=== PATIENT | female | born 1950 | race Caucasian/White ===

== ENCOUNTER 2019-01-28 15:46 | Inpatient (IN) | payer OTHER ==
[~2019-01-28] VITALS: Ht 162.6 cm; Wt 104.8 kg
[2019-01-28 15:46] VITALS: BP 159/57
[2019-01-28] MEDS ORDERED: ZESTRIL40 MG PO (16:09)
[2019-01-28] MEDS ORDERED: TRICOR145 MG PO (16:09)
[2019-01-28] MEDS ORDERED: LYRICA 75 MG CA75 MG PO (16:09)
[2019-01-28] MEDS ORDERED: XANAX1 MG PO (16:10)
[2019-01-28] MEDS ORDERED: OMEPRAZOLE40 MG PO (16:10)
[2019-01-28] MEDS ORDERED: ANTIVERT25 MG PO (16:10)
[2019-01-28] MEDS ORDERED: LEXAPRO20 MG PO (16:10)
[2019-01-28] MEDS ORDERED: WELLBUTRIN SR150 MG PO (16:11)
[2019-01-28] MEDS ORDERED: FLONASE 0.05%50 MCG NASAL (16:11)
[2019-01-28] MEDS ORDERED: HUMIRA PSO40 MG/0.8 (16:11)
[2019-01-28] MEDS ORDERED: JARDIANCE25 MG PO (16:12)
[2019-01-28] MEDS ORDERED: MYSOLINE50 MG PO (16:12)
[2019-01-28 16:21] LABS: HEMATOCRIT 41.4 % (37.0-47.0); HEMOGLOBIN 13.4 gm/dL (12.0-15.0); MCH 26.1 pg (26.0-34.0); MCHC 32.4 g/dL (28.0-37.0); MCV 80.6 fL (80.0-100.0); PLATELET COUNT 239 thou/uL (150-400); RBC 5.14 mil/uL (4.20-5.00); RDW 18.1 % (10.5-14.5); WBC 15.7 thou/uL (4.0-11.0)
[2019-01-28 16:39] LABS: ABSOLUTE NEUTROPHILS 13.8 thou/uL (1.4-8.2); ANISOCYTOSIS 1+; POLYCHROMASIA OCCASIONAL
[2019-01-28 16:45] LABS: ANION GAP 14 mmol/L (7-16); BUN 19 mg/dL (7-18); CALCIUM 10.6 mg/dL (8.5-10.1); CHLORIDE 99 mmol/L (98-107); CO2 22 mmol/L (21-32); CREATININE 1.1 mg/dL (0.6-1.0); GLUCOSE 198 mg/dL (74-106); POTASSIUM 5.5 mmol/L (3.5-5.1); SODIUM 135 mmol/L (136-145)
[2019-01-28 16:56] LABS: ALBUMIN 4.2 g/dL (3.4-5.0); LIPASE 132 U/L (73-393); SGOT 32 U/L (15-37); SGPT 40 U/L (30-65); TOTAL BILIRUBIN 0.6 mg/dL (<0.1-1.0); TOTAL PROTEIN 8.3 g/dL (6.4-8.2); TROPONIN-I <0.06 ng/mL (<0.06)
[2019-01-28 18:13] LABS: URINE BILIRUBIN NEGATIVE (Negative); URINE BLOOD NEGATIVE (Negative); URINE CLARITY CLEAR; URINE COLOR YELLOW; URINE GLUCOSE-RANDOM* NEGATIVE (Negative); URINE KETONES NEGATIVE (Negative); URINE LEUKOCYTES-REFLEX NEGATIVE (Negative); URINE NITRITE-REFLEX NEGATIVE (Negative); URINE PROTEIN (DIPSTICK) NEGATIVE (Negative); URINE SPECIFIC GRAVITY <= 1.005 (1.005-1.035); URINE UROBILINOGEN 0.2 E.U./dl (0.2-1.0)
[2019-01-28 18:46] VITALS: BP 164/56
--- NOTE | 2019-01-28 19:12 | NUR ---
REPORT FROM DAY SHIFT RNFRITZ. PATIENT AWAITING INPATIENT BED ASSIGNMENT. PER REPORT, PATIENT HAS 20G TO RIGHT AC AREA, BUT CONTINUOUSLY KINKS AND BEEPS. DAY SHIFT HAS REQUESTED IV TEAM COME LOOK FOR NEW LINE AND BLOOD CULUTRES/LACTIC ACID DRAW. PAPER BAG MAKING MACHINIST NOTIFIED THAT IV TEAM COULD MEET PATIENT IN INPATIENT ROOM 357 TO ATTEMPT NEW LINE.
--- NOTE | 2019-01-28 19:15 | NUR ---
FIRST ATTEMPT AT REPORT - SOPHIA UNAVAILABLE
--- NOTE | 2019-01-28 19:33 | NUR ---
THIS RN ATTEMPTED ONE IV STICK FOR MEDICATIONS TO INFUSE. CURRENT IV IS NOT ABLE TO INFUSE CONTINUOUS MEDICATIONS WITHOUT INTERRUPTION. IV TEAM NOTIFIED AND WILL BE PLACING NEW LINE FOR PATIENT.
--- NOTE | 2019-01-28 19:40 | NUR ---
REPORT TO INPATIENT RNSOPHIA
[2019-01-28 19:58] VITALS: BP 174/71
[2019-01-28 20:15] VITALS: BP 152/68
[2019-01-28] MEDS ORDERED: HUMIRA PSO40 MG/0.8 SUBQ (20:41)
[2019-01-28] MEDS ORDERED: PROBIOTIC1 EAC2 PO (20:47)
--- NOTE | 2019-01-28 23:14 | NUR ---
PT ARRIVED FROM ED VIA STRETCHER AROUND 2014 IN STABLE CONDITION, PT ORDER IS MED/SURG. PT ORIENTED TO ROOM AND ALLOWED FOR QUESTIONS. PT ADMITTED TO FLOOR AND ORDERS CARRIED OUT. DISCUSSED CONSENT REGARDING TELEMETRY INTERFERENCE AND RUNNERS ON THE FLOOR, EVEN THOUGH PT ISN'T ON TELEMETRY. SHE SIGNED THE CONSENT.
[2019-01-29 01:03] VITALS: BP 162/68
--- NOTE | 2019-01-29 02:40 | NUR ---
CALLED INTO PT ROOM BY PCT NOTIFYING ME THAT PT HAD TO GO TO THE BATHROOM AND URINATED AND HAD MORE DIARRHEA BUT BLOOD IN IT NOW. I LOOKED IN THE TOILET TO CONFIRM AND WAS BLOODY. FLY MARCELO IS ON FLOOR NOW SEEING ANOTHER PT AND I WILL LET HER KNOW ABOUT IT.
[2019-01-29 04:48] VITALS: BP 159/66
[2019-01-29 05:28] LABS: HEMATOCRIT 36.2 % (37.0-47.0); HEMOGLOBIN 11.6 gm/dL (12.0-15.0); MCH 26.3 pg (26.0-34.0); MCHC 32.1 g/dL (28.0-37.0); RBC 4.42 mil/uL (4.20-5.00)
--- NOTE | 2019-01-29 05:28 | NUR ---
PT RESTING IN BED NOW. HAS BEEN UP MULTIPLE TIMES TO VOID AND HAVE BM WHICH HAVE BEEN BLOODY. PT REMAINS ON RA. HAS MAINTENANCE IVFs. PT REQUIRED MULTIPLE DOSES OF PAIN MEDS THROUGHOUT SHIFT FOR ABD PAIN. AM LABS TO BE REVIEWED.
[2019-01-29 05:45] LABS: CREATININE 0.8 mg/dL (0.6-1.0); POTASSIUM 4.4 mmol/L (3.5-5.1)
[2019-01-29 07:55] VITALS: BP 152/58
--- NOTE | 2019-01-29 08:12 | EKG ---
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 : 1950 Requested By: Ketty Portillo Order Number: [id number] MD: Alpesh Navarro Measurements Intervals [place] Rate: 72 P: 61 WI: 175 QRS: -2 QRSD: 92 T: 59 QT: 380 QTc: 416 Interpretive Statements Sinus rhythm Cannot rule out Inferior infarct, old No previous ECG available for comparison Electronically Signed On 01-29-2019 8:11:58 CDT by Alpesh Navarro [email or web address] ��������������������������������������������� <ELECTRONICALLY SIGNED> ���������������������������������������� By: Alpesh Navarro MD, [facility] ��������������������������������������������� 01/29/19 0811 [id number] 1559 Alpesh Navarro MD, FACC /EPI
--- NOTE | 2019-01-29 14:23 | NUR ---
ASSESSMENT: CM REVIEWED CHART AND MET WITH PATIENT AT THE BEDSIDE. PT WAS ADMITTED WITH COLITIS. PT IS ALERT AND ORIENTED X4. PT REPORTS SHE LIVES AT HOME WITH HER . PT REPORTS HAVING NO STEPS TO ENTER THE HOME AND HER BEDROOM IS ON THE MAIN LEVEL. 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 PT REPORTS HAVING NO DME OR THE NEED FOR IT. PT REPORTS HAVING NO HH IN THE PAST NOR BEING TO A SNF. CM DISCUSSED ROLE. PT DOES NOT ANTICIPATE HAVING ANY NEEDS AT DISCHARGE.
[2019-01-29 16:19] VITALS: BP 148/61
--- NOTE | 2019-01-29 16:51 | NUR ---
Assumed care at 0700 this AM. Patient continues to have watery/bloody stool. GI consult obtained from Dr. Rizo-- GI CERTIFIED PROFESSIONAL CONTROLLER and physician saw patient this AM. IV morphine given for generalized abdominal pain, and an order obtained for tylenol for a headache per patient request. The patient also asked her xanax be increased from 0.5 mg to 2 mg as that is her home dose and she is "having an anxiety attack." Dr. Rizo changed the frequency of the 0.5 mg xanax to Q4H. Orders followed out. IV zofran given once for nausea. Fall precautions in place, although the aides reported the patient has turned off the bed alarm a couple times. Will continue to closely monitor... slow progress toward plan of care.
[2019-01-29 19:45] VITALS: BP 146/52
--- NOTE | 2019-01-30 03:48 | NUR ---
FOLLOWING POC WITH IVF AND IVPB. STOOL SAMPLE WAS COLLECTED AND SENT TO LAB. PT UP TO BATHROOM WITH SBA AND USING IV POLE FOR SUPPORT. PT STATES NO NAUSEA AND NO VOMITING SEEN. GAVE PT 1X IV PAIN MEDICATION AND PRN ALPRAZOLAM DURING SHIFT. HOURLY ROUNDING. FALL PRECAUTIONS IN PLACE.
[2019-01-30 04:48] VITALS: BP 127/49
[2019-01-30 06:15] LABS: HEMATOCRIT 36.2 % (37.0-47.0); HEMOGLOBIN 11.6 gm/dL (12.0-15.0); MCH 26.2 pg (26.0-34.0); MCHC 32.1 g/dL (28.0-37.0); MCV 81.6 fL (80.0-100.0); RBC 4.44 mil/uL (4.20-5.00); WBC 12.7 thou/uL (4.0-11.0)
[2019-01-30 06:32] LABS: CALCIUM 8.7 mg/dL (8.5-10.1); CREATININE 0.7 mg/dL (0.6-1.0); PHOSPHORUS 2.4 mg/dL (2.5-4.9); POTASSIUM 3.5 mmol/L (3.5-5.1)
[2019-01-30 07:36] VITALS: BP 132/50
[2019-01-30] MEDS ORDERED: LEVAQUIN 750 M750 MG PO (08:58)
[2019-01-30] MEDS ORDERED: FLAGYL500 M1 PO (08:59)
[2019-01-30 09:43] VITALS: BP 132/50
--- NOTE | 2019-01-30 10:10 | NUR ---
IV DISOCNTINUED. PT UNDERSTAND ALL FOLLOW UP ORDERS WILL DISCHARGE TO HOME.
--- NOTE | 2019-01-30 12:02 | NUR ---
ON-GOING ASSESSMENT: CM REVIEWED CHART AND PT IS DISCHARGING HOME TODAY WITH NO NEEDS.
== END 2019-01-30 10:21 | disposition home or self-care (01) | DRG 371 ==
LOC: ER 15:46 → EROBS 17:52 → 3W 17:52
PROVIDERS: Nurse Practitioner Acute Care; Nurse Practitioner Family; ADMIT Hospitalist
DX: A04.9 Bacterial intestinal infection, unspecified (principal); N17.0 Acute kidney failure with tubular necrosis; K92.1 Melena; E11.9 Type 2 diabetes mellitus without complications; I10 Essential (primary) hypertension; F41.9 Anxiety disorder, unspecified; E87.5 Hyperkalemia; G89.29 Other chronic pain; R10.9 Unspecified abdominal pain; D64.9 Anemia, unspecified; E66.9 Obesity, unspecified; Z68.39 Body mass index [BMI] 39.0-39.9, adult; Z79.899 Other long term (current) drug therapy
CPT/HCPCS: 10080; 10879